=== PATIENT | male | born 1950 | race Caucasian/White ===

== ENCOUNTER 2023-04-26 08:22 | Day surgery (SDC) | payer OTHER ==
[~2023-04-26] VITALS: Ht 167 cm; Wt 65.0 kg
[2023-04-26] MEDS ORDERED: LIDOCAINE 2% 100 MG/5 ML UJET TP ONE ×2 (09:44→11:05)
[2023-04-26] MEDS ORDERED: fentaNYL citrate 0.05 MG/ML VIAL ONE (09:44)
[2023-04-26] MEDS ORDERED: MIDAZOLAM 2 MG/2 ML VIAL ONE (09:44)
[2023-04-26] MEDS: MIDAZOLAM 2 MG/2 ML VIAL IVP ONE (10:01)
[2023-04-26] MEDS: fentaNYL citrate 0.05 MG/ML VIAL IVP ONE (10:02)
[2023-04-26] MEDS: LIDOCAINE 2% 100 MG/5 ML UJET TP ONE (10:21)
[2023-04-26] MEDS ORDERED: MIDAZOLAM 2 MG/2 ML VIAL IVP SCH (13:45)
[2023-04-27] MEDS ORDERED: LIDOCAINE 2% 100 MG/5 ML UJET TP SCH (13:15)
[2023-04-27] MEDS ORDERED: fentaNYL citrate 0.05 MG/ML VIAL IVP SCH (13:15)
== END 2023-04-26 12:20 | disposition home or self-care (01) ==
LOC: MDS 08:22 → MMU 08:24 → MDS 12:20
PROVIDERS: ATTEND Internal Medicine Gastroenterology
DX: R10.9 Unspecified abdominal pain (principal); K21.9 Gastro-esophageal reflux disease without esophagitis; K22.89 Other specified disease of esophagus; Z79.899 Other long term (current) drug therapy; Z98.890 Other specified postprocedural states
CPT/HCPCS: 43235; 45378; J2250; J3010